=== PATIENT | female | born 1970 | race Caucasian/White ===

== ENCOUNTER 2020-01-03 14:57 | Emergency (ER) | payer MEDICAID ==
[~2020-01-03] VITALS: Ht 160 cm; Wt 54.9 kg
[2020-01-03 15:07] VITALS: Ht 160 cm; Wt 54.9 kg
[2020-01-03 16:48] VITALS: BP 145/81
== END 2020-01-03 15:18 | disposition home or self-care (01) ==
LOC: ED 14:57
DX: L02.216 Cutaneous abscess of umbilicus (principal)
CPT/HCPCS: J2001